=== PATIENT | female | born 1980 | race Caucasian/White ===

== ENCOUNTER 2020-10-08 15:10 | Emergency (ER) | payer OTHER ==
[~2020-10-08] VITALS: Ht 167.6 cm; Wt 72.7 kg
[~2020-10-08 15:10] MED LIST: SYNTHROID0.175 MG PO
[2020-10-08 15:11] VITALS: TEMP 98.1
[2020-10-08 15:37] LABS: BASO # 0.1 (0.0-0.2); BASO % 0.9 % (0.0-2.0); EOS # 0.2 (0.0-0.7); EOS % 1.9 % (0-4.0); GRAN # 5.7 (1.4-6.5); GRAN % 50.5 % (42.2-75.2); HEMATOCRIT 40.2 % (37.0-47.0); LYMPH # 4.2 (1.2-3.4); LYMPH % 37.4 % (20.0-51.0); MEAN CELL VOLUME 95 fl (80.0-100.0); MEAN CORPUSCULAR HEMOGLOBIN 31 pg (27.0-31.0); MEAN CORPUSCULAR HGB CONC 32 g/dl (33.0-37.0); MEAN PLATELET VOLUME 10.2 fl (7.4-10.4); MONO % 8.8 % (1.7-9.3); PLATELET COUNT 407 K/mm3 (130-400); RED BLOOD COUNT 4.22 M/mm3 (4.10-5.30)
[2020-10-08 15:38] VITALS: BP 138/73
[2020-10-08 15:51] LABS: ALANINE AMINOTRANSFERASE 25 U/L (4-34); ALBUMIN 4.6 gm/dL (3.5-5.0); ALKALINE PHOSPHATASE 62 U/L (50-136); ANION GAP 18 mmol/L (7-16); AST,SGOT 27 U/L (15-37); BILIRUBIN,TOTAL 0.4 mg/dL (0.0-1.0); BLOOD UREA NITROGEN 15 mg/dL (7-17); CALCIUM 8.9 mg/dL (8.4-10.2); CARBON DIOXIDE 16 mmol/L (22-30); CHLORIDE 105 mmol/L (98-107); CREATINE KINASE 125 U/L (30-135); CREATININE, serum 0.99 (0.52-1.25); GLUCOSE 96 mg/dL (74-106); LACTATE DEHYDROGENASE 549 U/L (313-618); MAGNESIUM 2.5 mg/dL (1.6-2.3); POTASSIUM 3.7 mmol/L (3.4-5.0); SODIUM 139 mmol/L (137-145); TOTAL PROTEIN 8.1 gm/dL (6.4-8.2)
[2020-10-08 15:58] LABS: ALCOHOL(ethanol),MEDICAL < 10 mg/dL
[2020-10-08 16:01] LABS: TROPONIN-I < 0.012 ng/mL (0.000-0.035)
[2020-10-08 16:04] LABS: PROLACTIN 35.9 ng/mL (3.0-18.6)
[2020-10-08 17:11] LABS: COLLECTION METHOD CLEAN CATCH
[2020-10-08 17:23] LABS: MUCOUS Present /lpf; PH 6 (5-8); SQUAMOUS EPITHELIAL 0-2 /hpf; URINE APPEARANCE Clear; URINE BACTERIA None Seen /hpf; URINE BILIRUBIN Negative (NEGATIVE); URINE BLOOD Negative (NEGATIVE); URINE COLOR Yellow; URINE GLUCOSE Negative (NEGATIVE); URINE KETONE 1+ (NEGATIVE); URINE LEUKOCYTE ESTERASE Negative (NEGATIVE); URINE NITRATE Negative (NEGATIVE); URINE PROTEIN(semi-quant) Negative (NEGATIVE); URINE RBC 0-2 /hpf; URINE UROBILINOGEN Negative (NEGATIVE)
[2020-10-08 17:30] LABS: TRICYCLIC ANTIDEPRESS URINE NEGATIVE
[2020-10-08 18:40] VITALS: PULSE 80
== END 2020-10-08 18:40 | disposition home or self-care (01) ==
LOC: COL.ER 15:10
PROVIDERS: Nurse Practitioner Family
DX: R56.9 Unspecified convulsions (principal); Z86.16 Personal history of COVID-19; Z32.02 Encounter for pregnancy test, result negative; Z79.890 Hormone replacement therapy
CPT/HCPCS: J7030

== ENCOUNTER 2020-12-31 14:47 | Emergency (ER) | payer BC ==
[~2020-12-31] VITALS: Ht 167.6 cm; Wt 72.7 kg
[2020-12-31 14:48] VITALS: TEMP 98.2
[2020-12-31 16:10] LABS: BASO % 0.3 % (0.0-2.0); EOS # 0.1 (0.0-0.7); GRAN # 9.6 (1.4-6.5); GRAN % 80.7 % (42.2-75.2); HEMOGLOBIN 13.8 g/dl (12.5-16.0); LYMPH # 1.5 (1.2-3.4); LYMPH % 12.4 % (20.0-51.0); MEAN CELL VOLUME 90 fl (80.0-100.0); MEAN CORPUSCULAR HEMOGLOBIN 30 pg (27.0-31.0); MEAN CORPUSCULAR HGB CONC 34 g/dl (33.0-37.0); MEAN PLATELET VOLUME 10.4 fl (7.4-10.4); MONO # 0.6 (0.1-0.6); MONO % 5.2 % (1.7-9.3); PLATELET COUNT 226 K/mm3 (130-400); RED BLOOD COUNT 4.57 M/mm3 (4.10-5.30); REDCELL DISTRIBUTION WIDTH-CV 12.1 % (11.5-14.5)
[2020-12-31 16:24] LABS: ALANINE AMINOTRANSFERASE 32 U/L (4-34); ALBUMIN 4.8 gm/dL (3.5-5.0); ALKALINE PHOSPHATASE 66 U/L (50-136); ANION GAP 10 mmol/L (7-16); AST,SGOT 46 U/L (15-37); BILIRUBIN,TOTAL 0.5 mg/dL (0.0-1.0); BLOOD UREA NITROGEN 21 mg/dL (7-17); CALCIUM 9.3 mg/dL (8.4-10.2); CARBON DIOXIDE 21 mmol/L (22-30); CHLORIDE 106 mmol/L (98-107); CREATININE, serum 0.93 (0.52-1.25); GLUCOSE 89 mg/dL (74-106); SODIUM 138 mmol/L (137-145); TOTAL PROTEIN 8.5 gm/dL (6.4-8.2)
[2020-12-31 16:28] LABS: C-REACTIVE PROTEIN < 0.5 mg/dL (0.0-0.9)
[2020-12-31 16:41] LABS: PROLACTIN 20.7 ng/mL (3.0-18.6)
[2020-12-31 16:49] LABS: TROPONIN-I < 0.012 ng/mL (0.000-0.035)
[2020-12-31] MEDS ORDERED: KEPPRA 500MG500 MG PO (18:19)
[2020-12-31 18:45] VITALS: BP 121/64; PULSE 84
== END 2020-12-31 20:09 | disposition home or self-care (01) ==
LOC: COL.ER 14:47
PROVIDERS: Nurse Practitioner
DX: G40.909 Epilepsy, unspecified, not intractable, without status epilepticus (principal)
CPT/HCPCS: J1953; J7030